=== PATIENT | female | born 1945 | race Caucasian/White ===

== ENCOUNTER → 2016-10-05 | Outpatient (CLI) | payer OTHER ==
[2016-10-05 10:52] LABS: HEMOGLOBIN A1C 8.35 % (4.2-6.0); MEAN BLOOD GLUCOSE (CALC) 192.055 mg/dL
[2016-10-05 11:01] LABS: ASPARTATE AMINO TRANSFERASE 24 IU/L (8-39); BILIRUBIN,TOTAL 0.5 mg/dL (0.3-1.2); BLOOD UREA NITROGEN 15 mg/dL (7-22); BUN/CREATININE RATIO 21.42 (6-20); CALCIUM 9.7 mg/dL (8.7-10.7); CHLORIDE 104 meq/L (98-112); CREATININE 0.7 mg/dL (0.50-1.20); EST GLOMERULAR FILTRATION > 60 (>60 ml/min/1.73m(2)); GLUCOSE 195 mg/dL (78-110); POTASSIUM 4.7 meq/L (3.8-5.2); SODIUM 138 meq/L (135-145); TOTAL PROTEIN 7.7 g/dL (6.1-8.0)
== END ==
LOC: LAB 10:26
PROVIDERS: ATTEND Family Medicine
DX: E11.9 Type 2 diabetes mellitus without complications (principal); I10 Essential (primary) hypertension; F17.210 Nicotine dependence, cigarettes, uncomplicated
CPT/HCPCS: 36415; 80053; 83036

== ENCOUNTER → 2016-10-06 | Outpatient (CLI) | payer OTHER | LOC: MMPC 09:00 | PROVIDERS: ATTEND Family Medicine | DX: E11.9 Type 2 diabetes mellitus without complications (principal); E78.5 Hyperlipidemia, unspecified; E03.9 Hypothyroidism, unspecified; I10 Essential (primary) hypertension | CPT/HCPCS: 99213; G0463 ==

== ENCOUNTER → 2017-01-05 | Outpatient (CLI) | payer OTHER ==
[2017-01-05 08:26] LABS: BASOPHILS # (AUTO) 0.02 10*3/UL; BASOPHILS % (AUTO) 0.2 % (0-1); EOSINOPHILS # (AUTO) 0.27 10*3/UL; EOSINOPHILS % (AUTO) 2.5 % (0-8); HEMOGLOBIN 14.5 g/dL (12.0-16.0); LYMPHOCYTES # (AUTO) 2.68 10*3/uL; MEAN CORPUSCULAR HEMOGLOBIN 28.2 PG (27-31); MEAN CORPUSCULAR VOLUME 85.4 FL (81-99); MEAN PLATELET VOLUME 10.2 FL (7.4-12.2); MONOCYTES # (AUTO) 0.74 10*3/UL (0.3-0.8); MONOCYTES % (AUTO) 6.7 % (5-15); NEUTROPHILS # (AUTO) 7.28 10*3/UL; NEUTROPHILS % (AUTO) 66.1 % (50-80); RED BLOOD COUNT 5.15 10^6/uL (4.20-5.40)
[2017-01-05 08:38] LABS: PLATELET MORPHOLOGY COMMENT NORMAL MORPHOLOGY (NORM); RBC MORPHOLOGY COMMENT NORMAL MORPHOLOGY (NORM); WBC MORPHOLOGY COMMENT NORMAL MORPHOLOGY (NORM)
[2017-01-05 08:40] LABS: BLOOD UREA NITROGEN 15 mg/dL (7-22); BUN/CREATININE RATIO 18.75 (6-20); CALCIUM 9.4 mg/dL (8.7-10.7); EST GLOMERULAR FILTRATION > 60 (>60 ml/min/1.73m(2)); SERUM ALBUMIN 4.4 g/dL (3.5-4.8)
[2017-01-05 08:50] LABS: HEMOGLOBIN A1C 7.66 % (4.2-6.0)
[2017-01-05 09:05] LABS: CHOL/HDL RATIO 3.38 RATIO (0-4.0); LDL CHOLESTEROL,CALCULATED 93.8 mg/dL
== END ==
LOC: LAB 08:11
PROVIDERS: ATTEND Family Medicine
DX: E11.9 Type 2 diabetes mellitus without complications (principal); E03.9 Hypothyroidism, unspecified; E78.5 Hyperlipidemia, unspecified; I10 Essential (primary) hypertension; F41.0 Panic disorder [episodic paroxysmal anxiety]; F17.200 Nicotine dependence, unspecified, uncomplicated
CPT/HCPCS: 36415; 80053; 80061; 82306; 83036; 84443; 85025

== ENCOUNTER → 2017-01-06 | Outpatient (CLI) | payer OTHER | LOC: MMPC 09:00 | PROVIDERS: ATTEND Family Medicine | DX: I10 Essential (primary) hypertension (principal); F39 Unspecified mood [affective] disorder; Z86.59 Personal history of other mental and behavioral disorders | CPT/HCPCS: 99213 ==

== ENCOUNTER → 2017-01-07 | Outpatient (CLI) | payer OTHER ==
[2017-01-07 13:22] LABS: CLARITY,URINE CLEAR (CLEAR); COLOR,URINE YELLOW; PROTEIN,URINE NEGATIVE (NEG); URINE SAMPLE TYPE CLEAN CATCH URINE
[2017-01-07 13:23] LABS: BILIRUBIN,URINE NEGATIVE (NEG); GLUCOSE, URINE (UA) 100 mg/dL (NEG); NITRATE,URINE NEGATIVE (NEG); OCCULT BLOOD,URINE TRACE-INTACT (NEG); RBC,URINE 0-2 /hpf; SQUAMOUS EPITHELIAL CELL,UR RARE; UROBILINOGEN,URINE 0.2 mg/dL (0.2); WBC,URINE 0-2
== END ==
LOC: MOB LAB 10:32
PROVIDERS: ATTEND Family Medicine
DX: R30.0 Dysuria (principal); N39.0 Urinary tract infection, site not specified; R82.99 Other abnormal findings in urine
CPT/HCPCS: 81001; 81002; 87088